=== PATIENT | female | born 2000 | race Caucasian/White ===

== ENCOUNTER 2020-12-13 19:10 | Emergency (ER) | payer OTHER, SELFPAY ==
[2020-12-13 19:17] VITALS: BP 149/69; PULSE 81; RESP 16; TEMP 37.2; O2SAT 98
--- NOTE | 2020-12-13 19:53 | ED.LOWEXIN ---
HPI - Extremity Injury (Lower) General Chief Complaint: Extremity Injury, Lower Stated Complaint: right foot big toe pain Time Seen by Provider: 12/13/20 19:53 Source: patient and RN notes reviewed Mode of arrival: ambulatory Limitations: no limitations History of Present Illness HPI Narrative: 20-year-old female presents with concern for painful first digit of her right foot. She reports over past 2 days the toe was red, swollen, tender and yesterday she bumped the toe causing it to be more painful and causing a small red blister. She reports she has been soaking the toe in peroxide and water and using a Band-Aid. She denies other intervention. She denies musculoskeletal pain. MD complaint: other (Toe pain) Related Data Home Medications Medication Instructions Recorded Confirmed sertraline [Zoloft] 50 mg PO DAILY 12/13/20 12/13/20 Allergies Allergy/AdvReac Type Severity Reaction Status Date / Time amoxicillin AdvReac Nausea and Verified 12/13/20 19:30 Vomiting Review of Systems Review of Systems: Narrative: CONSTITUTIONAL: Denies malaise, chills, sweats, or fever. SKIN: Reports redness, tenderness to the medial aspect of the first digit of the right foot, reports of red bump MUSCULOSKELETAL: Denies muscular skeletal pain NEUROLOGIC: Denies numbness, weakness All systems reviewed & are unremarkable except as noted in HPI and below PMFSH Comments At time of signature, agree with nursing past medical, surgical, social and family history. There is no relevant family history pertinent to the presenting complaint Exam Narrative: Exam Narrative: GENERAL: Well-appearing, well-nourished, and in no acute distress. HEAD: Normocephalic, atraumatic. EYES: PERRLA, conjunctivae clear NECK: Supple. CHEST: Speaks in full sentences. No respiratory distress. HEART: Regular rate and rhythm. Normal and equal peripheral pulses. EXTREMITIES: First digit of right foot has normal strength and sensation, normal range of motion. No ecchymosis. 5/5 strength with digit flexion and extension. Normal sensation with sensitivity to light touch and pain. No point tenderness. No skin tenting, no devitalized tissue or atrophy, no trophic changes, no obvious deformity, alignment normal, nearby joints and structures intact. Distal pulses palpable and equal bilaterally, skin warm, dry, pink. Capillary refill less than 3 seconds. SKIN: Warm, dry, no rash. Erythema, mild edema to the medial aspect of the nailbed of the first digit of the right foot the 0.5 cm area of fluctuation noted NEURO: Alert and oriented x3. PSYCH: Normal mood and affect Course Course Emergency Course: Patient is aware of diagnosis, understands and agrees to treatment plan. Anticipatory guidance given. Patient agrees to follow-up as directed and is aware of reasons to seek care at the emergency department. Portions of this record may have been created with voice recognition software Vital Signs Vital signs: Vital Signs Temperature 99 F 12/13/20 19:17 Pulse Rate 81 12/13/20 19:17 Respiratory Rate 16 12/13/20 19:17 Blood Pressure 149/69 H 12/13/20 19:17 Pulse Oximetry 98 12/13/20 19:17 Temperature 99 F 12/13/20 19:17 Pulse Rate 81 12/13/20 19:17 Respiratory Rate 16 12/13/20 19:17 Blood Pressure 149/69 H 12/13/20 19:17 Pulse Oximetry 98 12/13/20 19:17 Reviewed. Procedures Abscess I/D foot: Date of Incision: 12/13/20 Time of Incision: 19:50 Side (if applicable): right Local Anesthetic: none Technique: needle aspiration Irrigation: No Packing used?: none I&D Results: Pus and Blood MDM - Extremity Injury (Lower) MDM Narrative Medical decision making narrative: Exam findings show no acute concerns or changes; patient is non-toxic appearing and is in no distress. Patient is appropriate for outpatient treatment and follow-up. Differential Diagnosis Differential diagnosis: Likely fractu
== END 2020-12-13 20:04 | disposition home or self-care (01) ==
PROVIDERS: Emergency Provider Nurse Practitioner
DX: L03.031 Cellulitis of right toe (principal)
CPT/HCPCS: 10160; 99213; G0463